=== PATIENT | male | born 1985 | race Caucasian/White ===

== ENCOUNTER 2017-08-31 08:42 | Emergency (ER) | payer OTHER, MEDICAID ==
[2017-08-31] MEDS ORDERED: MAGNESIUM SULFATE 2 GM, MULTIVITAMINS 10 ML, THIAMINE 100 MG, FOLIC ACID 1 MG in SOD CH... IV (09:06)
[2017-08-31] MEDS: morphine 4 MG/ML VIAL IV (09:22)
[2017-08-31] MEDS: ONDANSETRON 4 MG INJ IV ×2 (09:22→12:41)
[2017-08-31] MEDS: SOD CHLORIDE 0.9% 1,000 ML IV (09:22)
[2017-08-31] MEDS: LORAZEPAM 2 MG INJ IV ×2 (09:22→12:41)
[2017-08-31 09:35] LABS: ADD MAN DIFF? NO
[2017-08-31 09:39] LABS: BASOPHIL # 0.1 10^3/ul (0.0-0.1); BASOPHILS % 0.7 % (0.0-2.0); HEMATOCRIT 50.9 % (42.0-52.0); HEMOGLOBIN 17.7 g/dl (14.0-18.0); LYMPHOCYTES # 1.1 10^3/ul (0.8-2.9); LYMPHOCYTES % 9.4 % (15.0-51.0); MEAN CORPUSCULAR HEMOGLOBIN 33.6 pg (29.0-33.0); MEAN CORPUSCULAR HGB CONC 34.8 g/dl (32.0-37.0); MEAN CORPUSCULAR VOLUME 96.6 fl (82.0-101.0); MEAN PLATELET VOLUME 9.2 fl (7.4-10.4); MONOCYTE # 1.2 10^3/ul (0.3-0.9); MONOCYTES % 9.7 % (0.0-11.0); NEUTROPHIL # 9.6 10^3/ul (1.6-7.5); NEUTROPHILS % 79.4 % (39.0-77.0); PLATELET COUNT 264 10^3/UL (140-415); RED BLOOD COUNT 5.27 10^6/ul (4.70-6.10); RED CELL DISTRIBUTION WIDTH 14.1 % (11.5-14.5)
[2017-08-31 09:39] LABS: WHITE BLOOD COUNT 12.1 10^3/ul (4.8-10.8)
[2017-08-31 09:56] LABS: ALANINE AMINOTRANSFERASE 68 IU/L (13-69); ALBUMIN 4.9 g/dl (3.3-4.9); ALBUMIN/GLOBULIN RATIO 1.32; ALKALINE PHOSPHATASE 99 IU/L (42-121); ANION GAP 17 (8-16); ASPARTATE AMINO TRANSFERASE 62 IU/L (15-46); BILIRUBIN,INDIRECT 0.5 mg/dl (0-1.1); BILIRUBIN,TOTAL 0.5 mg/dl (0.2-1.3); BLOOD UREA NITROGEN 10 mg/dl (7-20); CALCIUM 9.5 mg/dl (8.4-10.2); CARBON DIOXIDE 25 mmol/L (21-31); CHLORIDE 101 mmol/L (97-110); CREATININE 0.71 mg/dl (0.61-1.24); GLUCOSE 135 mg/dl (70-220); POTASSIUM 4.1 mmol/L (3.5-5.1); SODIUM 139 mmol/L (135-144); TOTAL PROTEIN 8.6 g/dl (6.1-8.1)
[2017-08-31] MEDS: MULTIVITAMINS 10 ML, THIAMINE 100 MG, FOLIC ACID 1 MG in SOD CHLORIDE 0.9% 1,000 ML IV (10:02)
[2017-08-31 10:15] LABS: INR 0.87; PROTIME 11.9 Sec (11.9-14.9); PT RATIO 0.9
[2017-08-31 10:16] LABS: PARTIAL THROMBOPLASTIN TIME 26.4 Sec (25.0-35.0)
[2017-08-31] MEDS: IOHEXOL 300MG/ML 150 ML BTL (11:25)
[2017-08-31] MEDS: SOD CHLORIDE 0.9% 100 ML (11:25)
[2017-08-31] MEDS: CHLORDIAZEPOXIDE 25 MG CAP PO (12:41)
[2017-08-31] MEDS: HYDROmorphONE 2 MG/ML SYG IV (12:41)
== END 2017-08-31 17:26 | disposition home or self-care (01) ==
LOC: E/R 08:42
DX: S09.93XA Unspecified injury of face, initial encounter (principal); S09.90XA Unspecified injury of head, initial encounter; F10.230 Alcohol dependence with withdrawal, uncomplicated; S22.32XA Fracture of one rib, left side, initial encounter for closed fracture; R51 Headache; Y04.0XXA Assault by unarmed brawl or fight, initial encounter; Z87.891 Personal history of nicotine dependence
CPT/HCPCS: 70450; 70486; 71045; 74177; 80053; 80307; 85025; 85610; 85730; 96374; 96375; 96376; 99285-25